=== PATIENT | female | born 1965 | race Caucasian/White ===

== ENCOUNTER 2016-10-17 20:32 | Emergency (ER) | payer OTHER ==
[~2016-10-17] VITALS: Ht 160 cm; Wt 110.2 kg
[~2016-10-17 20:32] MED LIST: ACET500C PO; MIGRAINE MED; NORT10CA PO
[2016-10-17 20:33] VITALS: BP 96/61; PULSE 91; RESP 18; TEMP 98.1; O2SAT 97
[2016-10-17] MEDS ORDERED: REFLUX MED (20:47)
[2016-10-17] MEDS ORDERED: ATEN25TA PO (20:47)
[2016-10-17] MEDS ORDERED: FLUO-1 PO (20:47)
[2016-10-17] MEDS ORDERED: LIDOCAINE 1%/EPINEPHrine 1:100,000 SOLN 30 ML VIAL ONE (21:11)
--- NOTE | 2016-10-17 21:38 | PD ---
HPI Chief Complaint: Skin Problem Time Seen by Provider: 21:05 Travel History International Travel<30 days: No Contact w/Intl Traveler<30days: No Traveled to known affect area: No History of Present Illness HPI 51-year-old female presents to the emergency room for evaluation of bleeding varicose vein to the right lateral, upper leg that occurred just prior to arrival. Patient was shaving her legs and she next the vein and began squirting blood. She applied pressure but could not get it to stop. She denies shortness of breath, lightheadedness, history of anemia. She is not on blood thinners. Tetanus is up-to-date. PFSH Past Medical History Migraines: Yes ?: Not Past Surgical History Appendectomy: Yes Cholecystectomy: Yes Hysterectomy: Yes Other Surgery: Yes (ARM) Social History Alcohol Use: No Tobacco Use: No Substance Use: No Allergies-Medications (Allergen,Severity, Reaction): Coded Allergies: Codeine (Verified Allergy, Severe, 10/17/16) Motrin (Verified Allergy, Severe, Hives, 10/17/16) Ceclor (Verified Allergy, Unknown, HIVES, 10/17/16) Levaquin (Verified Allergy, Unknown, HIVES, 10/17/16) Penicillin (Verified Allergy, Unknown, HIVES, 10/17/16) Reported Meds & Prescriptions Reported Meds & Active Scripts Active Reported [Reflux Med] Unknown Dose Prozac (Fluoxetine HCl) 10 Mg Cap Unknown Dose PO DAILY Atenolol 25 Mg Tab Unknown Dose PO DAILY Nortriptyline (Nortriptyline HCl) 10 Mg Cap Unknown Dose PO HS Review of Systems Except as stated in HPI: all other systems reviewed are Neg Physical Exam Narrative GENERAL: Well-nourished, well-developed female in no acute distress. Afebrile. Ambulatory. SKIN: Focused skin assessment warm/dry. There is a less than 1 mm bleeding puncture wound over a 0.5 cm superficial varicose vein. HEAD: Normocephalic. EYES: No scleral icterus. No injection or drainage. NECK: Supple, trachea midline. No JVD or lymphadenopathy. CARDIOVASCULAR: Regular rate and rhythm without murmurs, gallops, or rubs. RESPIRATORY: Breath sounds equal bilaterally. No accessory muscle use. PSYCHIATRIC: No delusional thought processes. No hallucinations. Data Data Last Documented VS Vital Signs Date Time Temp Pulse Resp B/P Pulse Ox O2 Delivery O2 Flow Rate FiO2 10/17/16 20:33 98.1 91 18 96/61 97 Orders Lidocai-Epi 1%-1:100,000 Inj (Xylocaine- (10/17/16 21:11) MDM Medical Decision Making Medical Screen Exam Complete: Yes Emergency Medical Condition: Yes Medical Record Reviewed: Yes Differential Diagnosis Bleeding disorder, bleeding vein, abrasion, skin tear Narrative Course 51-year-old female presents to the emergency room for evaluation of bleeding superficial vein to her right lateral lower leg that started just prior to arrival. Patient cut herself shaving. She is not on blood thinners. Physical exam reveals a puncture wound over superficial varicose vein that is shooting blood. Lidocaine with epinephrine was applied without relief in symptoms. Area was sutured, see procedure note for details. Patient discharged with wound care instructions and told to follow-up with her primary care physician or return for worsening symptoms. She understands and agrees to plan. Procedures Procedure Narrative LACERATION LOCATION: Right, proximal, lateral lower leg LENGTH: Less than 1 mm NUMBER OF STITCHES/LAURI: 2 REPAIR: The area of the laceration was prepped with Betadine and sterilely draped. The laceration was infiltrated with 1% lidocaine with epinephrine. The wound was copiously irrigated and explored without evidence of foreign body , tendon injury or neurovascular injury. The wound was closed using 6-0 Vicryl. This was a single layer repair. A sterile dressing was applied. The patient was advised to keep the dressing clean and dry. Patient tolerated the procedure well. Diagnosis Primary Impression: Bleeding from varicose veins of right lower extremity Referrals: Primary Care Physician Patient Instructions: General Instructions, Puncture Wound (ED), Varicose Veins (ED) Additional Instructions: Keep wound clean and dry. Apply triple antibiotic ointment twice today. Follow-up with a PCP as needed. If wound starts bleeding, apply pressure for 1 hour. If it is still bleeding after one hour, return to the emergency room. Disposition: 01 DISCHARGE HOME Condition: Stable Coral Tierney Oct 17, 2016 21:38
[2016-10-17 21:39] VITALS: BP 121/52; PULSE 91; O2SAT 97
[2016-10-17] MEDS ORDERED: LIDOCAINE 1%/EPINEPHrine 1:100,000 SOLN 20 ML VIAL INFIL ONE (21:45)
== END 2016-10-17 21:40 | disposition home or self-care (01) ==
LOC: PHEFT 20:32
DX: I83.891 Varicose veins of right lower extremity with other complications (principal); S81.811A Laceration without foreign body, right lower leg, initial encounter
CPT/HCPCS: 12001; 96372

== ENCOUNTER 2017-04-29 05:26 | Inpatient (IN) | payer OTHER ==
[~2017-04-29] VITALS: Ht 160 cm; Wt 117.5 kg
[~2017-04-29 05:26] MED LIST changes: -ACET500C PO; +ATEN25TA PO; +FLUO-1 PO; -MIGRAINE MED
[2017-04-29] MEDS ORDERED: ACETAMINOPHEN 1000 MG/100 ML 100 ML IV SCH (06:00)
[2017-04-29] MEDS ORDERED: LACTATED RINGER'S 1000 ML IV PRN (06:00)
[2017-04-29] MEDS ORDERED: POVIDONE IODINE 5% (ANTISEPSIS KIT) 4 APPLICATIONS EACH NARE PRN (06:00)
[2017-04-29] MEDS ORDERED: CHLORHEXIDINE GLUCONATE 2 % 1 PACK (2 CLOTHS) TOPICAL PRN (06:00)
[2017-04-29] MEDS ORDERED: ONDANSETRON HCL 4 MG/2 ML VIAL IV PUSH SCH (06:00)
[2017-04-29] MEDS ORDERED: APREPITANT 40 MG CAP PO SCH (06:00)
[2017-04-29] MEDS ORDERED: METOPROLOL TARTRATE 25 MG TAB PO PRN (06:00)
[2017-04-29] MEDS ORDERED: SCOPOLAMINE 1.5 MG PATCH T-DERMAL SCH (06:00)
[2017-04-29] MEDS ORDERED: SODIUM CHLORID 0.9% 500 ML IV PRN (06:00)
[2017-04-29] MEDS ORDERED: LEVO137T2 PO (06:33)
[2017-04-29] MEDS ORDERED: PANT40TA3 PO (06:37)
[2017-04-29] MEDS ORDERED: BUPIVACAINE/EPINEPHRINE 0.25% PF 30 ML VIAL ONE (07:04)
[2017-04-29] MEDS: metroNIDAZOLE 500 MG INJ 100 ML IV SCH ×3 (07:39→16:46)
[2017-04-29] MEDS: VANCOMYCIN 1,250 MG/NS 250 ML (for 70-84 kg) IV SCH ×4 (08:26→08:47)
[2017-04-29] MEDS ORDERED: METHYLENE BLUE 10 MG/ML VIAL NG ONE (08:47)
[2017-04-29] MEDS ORDERED: HYDROmorphone HCL PCA 6 MG/30 ML IV SCH (10:00)
[2017-04-29] MEDS ORDERED: diphenhydrAMINE HCL ELIXIR 12.5 MG/5 ML CUP PO PRN (10:00)
[2017-04-29] MEDS ORDERED: diphenhydrAMINE HCL 50 MG/ML VIAL IV PUSH PRN (10:00)
[2017-04-29] MEDS ORDERED: SODIUM CHLORIDE 0.9% FLUSH 10 ML FLUSH IV FLUSH PRN (10:00)
[2017-04-29] MEDS ORDERED: ENALAPRILAT 1.25 MG/ML VIAL IV PUSH PRN (10:00)
[2017-04-29] MEDS ORDERED: NALOXONE HCL 0.4 MG/ML AMP IV PUSH PRN (10:00)
[2017-04-29] MEDS ORDERED: Post-op Orders (for Pharmacy) OTHER ONE (10:12)
[2017-04-29] MEDS: 1/2 NS + KCL 20 MEQ INJ 1,000 ML IV SCH ×3 (10:34→19:13)
[2017-04-29] MEDS: METOCLOPRAMIDE HCL 10 MG/2 ML VIAL IV PUSH SCH ×3 (11:00→21:24)
[2017-04-29] MEDS: RESP: ALBUTEROL 2.5 MG/3 ML NEB (SCH) INH ×2 (11:32→20:54)
[2017-04-29] MEDS ORDERED: *HYDROmorphone PF 1 MG VIAL PERIprocedural Use ONLY ONE (11:37)
[2017-04-29] MEDS: ACETAMINOPHEN 1000 MG/100 ML 100 ML IV SCH ×2 (11:43→17:53)
[2017-04-29] MEDS ORDERED: GLYCOPYRROLATE 1 MG/5 ML SYRINGE IV PUSH ONE (12:00)
[2017-04-29] MEDS ORDERED: LIDOCAINE HCL 1% PF 5 ML SYRINGE OTHER ONE (12:00)
[2017-04-29] MEDS ORDERED: ePHEDrine/NS 25 MG/5 ML SYRINGE IV ONE (12:00)
[2017-04-29] MEDS ORDERED: PHENYLEPH/NS 1000 MCG/10 ML SYR IV ONE (12:00)
[2017-04-29] MEDS ORDERED: ROCURONIUM INJ 50 MG/5 ML SYRINGE IV PUSH ONE (12:00)
[2017-04-29] MEDS ORDERED: ONDANSETRON HCL 4 MG/2 ML VIAL IV PUSH ONE (12:00)
[2017-04-29] MEDS ORDERED: PROPOFOL 200 MG/20 ML AMP IV ONE (12:00)
[2017-04-29] MEDS ORDERED: NEOSTIGMINE 5 MG/5 ML SYRINGE IV PUSH ONE (12:00)
[2017-04-29] MEDS: ENOXAPARIN SODIUM 40 MG/0.4 ML SYRINGE SQ SCH (14:00)
[2017-04-29] MEDS ORDERED: PCA - TOTAL MG DILAUDID DELIVERED PER SHIFT SCH (14:00)
[2017-04-29] MEDS: HYDROmorphone HCL PF 2 MG/ML VIAL IV PRN ×2 (14:17→21:19)
[2017-04-29 16:00] VITALS: BP 112/55; PULSE 91; RESP 16; TEMP 97.4; O2SAT 96
[2017-04-29] MEDS: ONDANSETRON HCL 4 MG/2 ML VIAL IV PUSH PRN (16:02)
[2017-04-29 20:00] VITALS: BP 101/54; PULSE 84; RESP 18; TEMP 96.5; O2SAT 99
[2017-04-29 20:59] VITALS: O2SAT 98
[2017-04-29] MEDS: VANCOMYCIN INJ 1,000 MG in SODIUM CHLOR 0.9% 250 ML INJ 250 ML IV SCH (21:23)
[2017-04-29] MEDS: SODIUM CHLORIDE 0.9% FLUSH 10 ML FLUSH IV FLUSH SCH (21:23)
[2017-04-30] VITALS (9 sets, daily range): BP systolic 110–140; BP diastolic 58–69; PULSE 90–111; RESP 18–20; TEMP 96.5–98.1; O2SAT 93–100
[2017-04-30] MEDS: ACETAMINOPHEN 1000 MG/100 ML 100 ML IV SCH ×2 (00:01→04:41)
[2017-04-30] MEDS: metroNIDAZOLE 500 MG INJ 100 ML IV SCH ×2 (00:02→08:15)
[2017-04-30] MEDS: RESP: ALBUTEROL 2.5 MG/3 ML NEB (SCH) INH ×6 (00:30→21:15)
[2017-04-30] MEDS: HYDROmorphone HCL PF 2 MG/ML VIAL IV PRN ×3 (01:43→15:11)
[2017-04-30] MEDS: METOCLOPRAMIDE HCL 10 MG/2 ML VIAL IV PUSH SCH (04:40)
[2017-04-30] MEDS: LEVOTHYROXINE SODIUM 112 MCG TAB PO SCH (04:42)
[2017-04-30 07:38] LABS: AUTOMATED NEUTROPHIL # 10.7 TH/MM3 (1.8-7.7); BASOPHIL # 0.1 TH/MM3 (0-0.2); BASOPHIL % 0.4 % (0.0-2.0); EOSINOPHIL # 0.1 TH/MM3 (0-0.4); EOSINOPHIL % 0.6 % (0.0-4.0); HEMOGLOBIN 12.2 GM/DL (11.6-15.3); LYMPH % 13.1 % (9.0-44.0); LYMPHOCYTE # 1.7 TH/MM3 (1.0-4.8); MEAN CELL VOLUME 92.2 FL (80.0-100.0); MEAN CORPUSCULAR HEMOGLOBIN 30.4 PG (27.0-34.0); MEAN PLATELET VOLUME 8.9 FL (7.0-11.0); MONO % 4.9 % (0.0-8.0); MONOCYTE # 0.7 TH/MM3 (0-0.9); PLATELET COUNT 240 TH/MM3 (150-450); RED BLOOD COUNT 4.02 MIL/MM3 (4.00-5.30); RED CELL DISTRIBUTION WIDTH 13.6 % (11.6-17.2); WHITE BLOOD COUNT 13.2 TH/MM3 (4.0-11.0)
[2017-04-30 08:02] LABS: BICARBONATE 26.6 MEQ/L (21.0-32.0); CALCIUM 8.1 MG/DL (8.5-10.1); CREATININE 0.86 MG/DL (0.50-1.00)
[2017-04-30] MEDS: FLUoxetine HCL 10 MG CAP PO SCH (08:16)
[2017-04-30] MEDS: PANTOPRAZOLE SOD 40 MG DELAYED RELEASE TAB PO SCH (08:16)
[2017-04-30] MEDS: ONDANSETRON HCL 4 MG/2 ML VIAL IV PUSH PRN ×2 (08:24→18:14)
[2017-04-30] MEDS: SODIUM CHLORIDE 0.9% FLUSH 10 ML FLUSH IV FLUSH SCH ×2 (09:00→20:24)
[2017-04-30] MEDS ORDERED: LEVOTHYROXINE SODIUM 25 MCG TAB PO SCH (09:00)
[2017-04-30] MEDS: VANCOMYCIN INJ 1,000 MG in SODIUM CHLOR 0.9% 250 ML INJ 250 ML IV SCH (09:47)
[2017-04-30] MEDS ORDERED: METOCLOPRAMIDE HCL 10 MG/2 ML VIAL IV PUSH PRN (11:00)
[2017-04-30] MEDS: ENOXAPARIN SODIUM 40 MG/0.4 ML SYRINGE SQ SCH (12:38)
[2017-04-30] MEDS ORDERED: NORTRIPTYLINE HCL 10 MG CAP PO ONE (13:00)
--- NOTE | 2017-04-30 15:55 | HHI.PR ---
Subjective Subjective Notes Sitting up in bed Pain controlled Going slow with fluids Objective Vitals/I&O Vital Signs Date Time Temp Pulse Resp B/P (MAP) Pulse Ox O2 Delivery O2 Flow Rate FiO2 04/30/17 12:22 98.1 04/30/17 12:00 93 18 135/61 (85) 93 04/30/17 00:30 Nasal Cannula 2.00 Labs Laboratory Tests Test 04/30/17 06:50 White Blood Count 13.2 Red Blood Count 4.02 Hemoglobin 12.2 Hematocrit 37.0 Mean Corpuscular Volume 92.2 Mean Corpuscular Hemoglobin 30.4 Mean Corpuscular Hemoglobin Concent 33.0 Red Cell Distribution Width 13.6 Platelet Count 240 Mean Platelet Volume 8.9 Neutrophils (%) (Auto) 81.0 Lymphocytes (%) (Auto) 13.1 Monocytes (%) (Auto) 4.9 Eosinophils (%) (Auto) 0.6 Basophils (%) (Auto) 0.4 Neutrophils # (Auto) 10.7 Lymphocytes # (Auto) 1.7 Monocytes # (Auto) 0.7 Eosinophils # (Auto) 0.1 Basophils # (Auto) 0.1 CBC Comment DIFF FINAL Differential Comment Blood Urea Nitrogen 14 Creatinine 0.86 Random Glucose 180 Calcium Level 8.1 Magnesium Level 2.0 Sodium Level 134 Potassium Level 4.3 Chloride Level 99 Carbon Dioxide Level 26.6 Anion Gap 8 Estimat Glomerular Filtration Rate 69 Cardiovascular: Regular Lungs: Clear Abdomen: Post-op tenderness Extremities: Perfused Wound Wound : Wound Location: Abdomen Appearance: Clean & Dry A/P Assessment and Plan 51yo F POD#1 laparoscopic RnY -Continue with frequent ambulation -Continue to increase fluid to at least 2oz Q30min Discharge Planning D/C home tomorrow Rachid Del Rio Apr 30, 2017 15:54
[2017-04-30] MEDS: ATENOLOL 25 MG TAB PO SCH (16:10)
[2017-04-30 20:10] LABS: AUTOMATED NEUTROPHIL # 7.9 TH/MM3 (1.8-7.7); BASOPHIL % 0.3 % (0.0-2.0); EOSINOPHIL # 0.1 TH/MM3 (0-0.4); EOSINOPHIL % 0.9 % (0.0-4.0); HEMATOCRIT 33.3 % (35.0-46.0); HEMOGLOBIN 10.9 GM/DL (11.6-15.3); LYMPH % 10.8 % (9.0-44.0); MEAN CORPUSCULAR HEMOGLOBIN 29.8 PG (27.0-34.0); MEAN CORPUSCULAR HGB CONC 32.7 % (32.0-36.0); MEAN PLATELET VOLUME 8.5 FL (7.0-11.0); MONO % 4.2 % (0.0-8.0); MONOCYTE # 0.4 TH/MM3 (0-0.9); NEUT % 83.8 % (16.0-70.0); PLATELET COUNT 167 TH/MM3 (150-450); RED BLOOD COUNT 3.65 MIL/MM3 (4.00-5.30); RED CELL DISTRIBUTION WIDTH 13.5 % (11.6-17.2); WHITE BLOOD COUNT 9.5 TH/MM3 (4.0-11.0)
[2017-04-30 20:19] LABS: INTERNATIONAL NORMALIZED RATIO 1.1 RATIO; PROTHROMBIN TIME - PATIENT 10.7 SEC (9.8-11.6)
[2017-04-30] MEDS: 1/2 NS + KCL 20 MEQ INJ 1,000 ML IV SCH (20:24)
[2017-04-30 20:27] LABS: CREATININE 0.58 MG/DL (0.50-1.00)
[2017-04-30 20:28] LABS: TOTAL BILIRUBIN ADULT 0.4 MG/DL (0.2-1.0)
[2017-04-30] MEDS ORDERED: NORTRIPTYLINE HCL 10 MG CAP PO SCH (21:00)
[2017-05-01] VITALS: BP 141/82; PULSE 85; RESP 18; TEMP 98.3; O2SAT 92
[2017-05-01] MEDS: RESP: ALBUTEROL 2.5 MG/3 ML NEB (SCH) INH ×3 (01:09→08:00)
[2017-05-01] MEDS: LEVOTHYROXINE SODIUM 112 MCG TAB PO SCH (05:52)
[2017-05-01] MEDS ORDERED: LEVOTHYROXINE SODIUM 25 MCG TAB PO SCH (06:00)
[2017-05-01 08:00] VITALS: BP 130/72; PULSE 84; RESP 16; TEMP 96.8; O2SAT 91
[2017-05-01] MEDS: SODIUM CHLORIDE 0.9% FLUSH 10 ML FLUSH IV FLUSH SCH (09:00)
[2017-05-01] MEDS: PANTOPRAZOLE SOD 40 MG DELAYED RELEASE TAB PO SCH (09:02)
[2017-05-01] MEDS: ATENOLOL 25 MG TAB PO SCH (09:02)
[2017-05-01] MEDS: FLUoxetine HCL 10 MG CAP PO SCH (09:02)
[2017-05-01] MEDS: 1/2 NS + KCL 20 MEQ INJ 1,000 ML IV SCH (09:04)
[2017-05-01 12:00] VITALS: BP 164/82; PULSE 76; RESP 21; TEMP 96.3; O2SAT 94
--- NOTE | 2017-05-01 12:20 | HHI.PR ---
Subjective Subjective Notes Pain well controlled No GI complaints Objective Vitals/I&O Vital Signs Date Time Temp Pulse Resp B/P (MAP) Pulse Ox O2 Delivery O2 Flow Rate FiO2 05/01/17 12:00 96.3 76 21 164/82 (109) 94 04/30/17 00:30 Nasal Cannula 2.00 Labs Laboratory Tests Test 04/30/17 19:34 White Blood Count 9.5 Red Blood Count 3.65 Hemoglobin 10.9 Hematocrit 33.3 Mean Corpuscular Volume 91.0 Mean Corpuscular Hemoglobin 29.8 Mean Corpuscular Hemoglobin Concent 32.7 Red Cell Distribution Width 13.5 Platelet Count 167 Mean Platelet Volume 8.5 Neutrophils (%) (Auto) 83.8 Lymphocytes (%) (Auto) 10.8 Monocytes (%) (Auto) 4.2 Eosinophils (%) (Auto) 0.9 Basophils (%) (Auto) 0.3 Neutrophils # (Auto) 7.9 Lymphocytes # (Auto) 1.0 Monocytes # (Auto) 0.4 Eosinophils # (Auto) 0.1 Basophils # (Auto) 0.0 CBC Comment DIFF FINAL Differential Comment Prothrombin Time 10.7 Prothromb Time International Ratio 1.1 Activated Partial Thromboplast Time 28.6 Creatinine 0.58 Estimat Glomerular Filtration Rate 109 Lactic Acid Level 1.1 Total Bilirubin 0.4 Date/Time Source Procedure Growth Status 04/30/17 19:34 Blood Peripheral Aerobic Blood Culture - Preliminary NO GROWTH IN 1 DAY Resulted 04/30/17 19:34 Blood Peripheral Anaerobic Blood Culture - Preliminary NO GROWTH IN 1 DAY Resulted Abdomen: Post-op tenderness Extremities: Perfused Wound Wound : Wound Location: Abdomen Appearance: Clean & Dry A/P Assessment and Plan 51yo F POD#2 laparoscopic RnY -Continue with frequent ambulation -Continue to increase fluid as tolerated Discharge Planning D/C home today Rachid Del Rio May 01, 2017 12:20
[2017-05-01] MEDS ORDERED: NORTRIPTYLINE HCL 10 MG CAP PO SCH (21:00)
--- NOTE | 2017-05-02 08:49 | MP ---
cc: SCAR SCHWARZ DATE OF OPERATION 04/29/2017 DATE OF 1965 PREOPERATIVE DIAGNOSIS Morbid obesity with BMI of 46 complicated by type 2 diabetes. POSTOPERATIVE DIAGNOSIS Morbid obesity with BMI of 46 complicated by type 2 diabetes. PROCEDURE Laparoscopic Dominick-en-Y gastric bypass 100 cm Dominick limb antegastric antecolic. SURGEON Scar Schwarz MD SUPERVISOR WOUND Porter Gaona MD ANESTHESIA General endotracheal anesthesia ESTIMATED BLOOD LOSS Scant FINDINGS Fatty liver SPECIMENS None COMPLICATIONS None PROCEDURE IN DETAIL The patient was brought to the operating room and placed on the operating table in supine position, bilateral sequential inflation device placed on lower extremities. General anesthesia was instituted. Antibiotics was initiated. The abdomen was prepped and draped sterilely. A point 15 cm distal to the xiphoid in the midline was anesthetized with 0.25% Marcaine with epinephrine. A skin incision was made, 5-mm OptiView port placed under direct vision and pneumoperitoneum created. Under direct vision, three 5-mm left upper quadrant, a 15-mm right upper quadrant, 5-mm right upper quadrant ports placed. Prior to placement of all ports the skin and peritoneum were anesthetized with 0.25% Marcaine with epinephrine. The patient was placed in reverse Trendelenburg position left side up, the Scarlett-Flex retractor was placed. The left lobe of the liver was retracted. The vasculature along the greater curvature of the stomach was using harmonic scalpel starting a distance 5-cm proximal to the pylorus and carried towards the angle of His. The angle of His was taken down bluntly. Posterior ligamentous attachments were sharply . A 36-[place] ViSiGi bougie was placed at the start of the case, was placed on suction. Division of the stomach started 5 cm proximal to the pylorus and carried towards the angle of His to completely excise approximately 80% of the stomach. This was performed using an [place] Flex stapler at the pylorus. The first firing was with a black load, followed by a green load and four gold loads. All staple loads were reinforced with SeamGuard. A distance of 2 cm was left from the angle incisura and the staple line and a distance of 1 cm left from the GE junction and the staple line. The pylorus was then occluded, methylene blue tinged saline was instilled. There was no evidence of extravasation. The gastrocolic ligament was then sutured to the posterior leaflet of the SeamGuard using a 2-0 Vicryl suture in a running manner. Bleeding points were controlled with Evicel. The excised stomach was removed from the peritoneal cavity through the 15-mm port site in an Endopouch. The fascia at the 15-mm port site was approximated with 0 Vicryl suture. The CO2 was then released, all ports were removed, all skin incisions closed with 4-0 Monocryl. The abdominal wall was cleaned. A sterile dressing was placed. The patient was awakened and taken to the recovery room. MD NIESHA Gayle/EMELI /5:42 PM /8:37 AM
== END 2017-05-01 13:39 | disposition home or self-care (01) | DRG 621 ==
LOC: HSDI 05:26 → N07A 15:10
PROVIDERS: ADMIT Surgery; ATTEND Surgery
PROC: 0D164ZA Bypass Stomach to Jejunum, Percutaneous Endoscopic Approach (ICD-10-PCS; principal; 2017-04-29 07:57)
DX: E66.01 Morbid (severe) obesity due to excess calories (principal); K76.0 Fatty (change of) liver, not elsewhere classified; E11.9 Type 2 diabetes mellitus without complications; Z68.42 Body mass index [BMI] 45.0-49.9, adult; G43.909 Migraine, unspecified, not intractable, without status migrainosus; K21.9 Gastro-esophageal reflux disease without esophagitis; E03.9 Hypothyroidism, unspecified; Z88.1 Allergy status to other antibiotic agents; Z88.5 Allergy status to narcotic agent; Z88.0 Allergy status to penicillin; Z88.2 Allergy status to sulfonamides
CPT/HCPCS: 80048; 82247; 82565; 83605; 83735; 85025; 85610; 85730; 87040; 94150; 94640; 94664; J0131; J1170; J1650; J2370; J2405; J2710; J2765; J3370; J7050; J7120; J7613; J8501

== ENCOUNTER 2017-05-04 03:52 | Inpatient (IN) | payer OTHER ==
[~2017-05-04 03:52] MED LIST changes: +LEVO137T2 PO; +PANT40TA3 PO
[2017-05-04 03:54] VITALS: BP 112/66; PULSE 100; RESP 18; TEMP 98.6; O2SAT 97
[2017-05-04] MEDS ORDERED: SODIUM CHLOR 0.9% 1000 ML INJ 1,000 ML IV SCH (05:11)
[2017-05-04] MEDS ORDERED: SODIUM CHLORIDE 0.9% FLUSH 10 ML FLUSH IV FLUSH PRN ×2 (05:15→13:30)
[2017-05-04] MEDS ORDERED: ONDANSETRON HCL 4 MG/2 ML VIAL IVP ONE (05:15)
--- NOTE | 2017-05-04 05:17 | PD ---
HPI Chief Complaint: GI Complaint Time Seen by Provider: 05:11 Travel History International Travel<30 days: No Contact w/Intl Traveler<30days: No Traveled to known affect area: No History of Present Illness HPI 51-year-old female presents to the emergency department by private transportation for evaluation of vomiting since Saturday evening. Patient underwent elective gastric bypass on Saturday with Dr. Rojas. Patient is been doing well until last evening. Patient denies fever or chills. Patient's had no productive cough or shortness of breath or pleuritic chest pain. No report of lower extremity pain or swelling. No shortness of breath. Patient has had vomiting at least 11 times since last evening of mild amount of pink tinged fluid from the stomach states that she has been eating Jell-O. Patient rates overall discomfort 5/10 in intensity and described as crampy in nature. Last bowel movement was last Saturday and has not had a bowel movement since surgery. Patient does not report any increased distention of the abdomen. Per operative note, patient underwent elective laparoscopic Dominick-en-Y gastric bypass was 100 cm Dominick limb, antegastric antecolic. Patient has history of diet -controlled diabetes GERD hypothyroidism anxiety. No tobaccoism. PFSH Past Medical History Arthritis: Yes Depression: Yes Cancer: No Cardiovascular Problems: No Diabetes: Yes (CONTROLED BY DIET ) Patient Takes Glucophage: No Diminished Hearing: No Endocrine: Yes Gastrointestinal Disorders: Yes GERD: Yes Genitourinary: No Hepatitis: No Hiatal Hernia: No Immune Disorder: No Medical other: Yes (MIGRAINES (TREATING WITH ATENOLOL)) Musculoskeletal: Yes Neurologic: No Psychiatric: Yes Respiratory: No Migraines: Yes (TAKES BETABLOCKER ) Thyroid Disease: Yes ?: Not Past Surgical History Abdominal Surgery: Yes (APENDECTOMY, AND GALBLADER ) AICD: No Appendectomy: Yes Body Medical Devices: NONE PER PT Cholecystectomy: Yes Gynecologic Surgery: Yes (HYSTORECTOMY ) Hysterectomy: Yes Joint Replacement: No Pacemaker: No Other Surgery: Yes (FULL HISTORECTOM, GALL BLADDER, APENDIX ) Social History Alcohol Use: No Tobacco Use: No Substance Use: No Allergies-Medications (Allergen,Severity, Reaction): Coded Allergies: codeine (Unverified Allergy, Severe, 05/04/17) ibuprofen (Unverified Allergy, Severe, Hives, 05/04/17) cefaclor (Unverified Allergy, Unknown, HIVES, 05/04/17) levofloxacin (Unverified Allergy, Unknown, HIVES, 05/04/17) penicillin G (Unverified Allergy, Unknown, HIVES, 05/04/17) Uncoded Allergies: MORPHINE DERIVATIVES (Allergy, Unknown, Hives, 04/29/17) SULFA DRUGS (Allergy, Unknown, hives, 04/29/17) Reported Meds & Prescriptions Reported Meds & Active Scripts Active Reported Pantoprazole (Pantoprazole Sodium) 40 Mg Tab 40 Mg PO BID Levothyroxine (Levothyroxine Sodium) 137 Mcg Tab 137 Mcg PO DAILY Prozac (Fluoxetine HCl) 10 Mg Cap 10 Mg PO DAILY Atenolol 25 Mg Tab 25 Mg PO DAILY Nortriptyline (Nortriptyline HCl) 10 Mg Cap 10 Mg PO HS Review of Systems Except as stated in HPI: all other systems reviewed are Neg Physical Exam Narrative GENERAL: Well-developed well-nourished obese female in no acute distress no respiratory distress SKIN: Warm and dry. HEAD: Normocephalic. EYES: No scleral icterus. No injection or drainage. NECK: Supple, trachea midline. No JVD or lymphadenopathy. CARDIOVASCULAR: Regular rate and rhythm without murmurs, gallops, or rubs. RESPIRATORY: Breath sounds equal bilaterally. No accessory muscle use. GASTROINTESTINAL: Abdomen soft, non-tender, no guarding no rebound, pulsatile Steri-Strips in place with no induration erythema or drainage, nondistended. MUSCULOSKELETAL: No cyanosis, or edema. BACK: Nontender without obvious deformity. No CVA tenderness. Data Data Last Documented VS Vital Signs Date Time Temp Pulse Resp B/P (MAP) Pulse Ox O2 Delivery O2 Flow Rate FiO2 05/04/17 03:54 98.6 100 18 112/66 (81) 97 Orders Orders Complete Blood Count With Diff (05/04/17 05:11) Comprehensive Metabolic Panel (05/04/17 05:11) Lipase (05/04/17 05:11) Lactic Acid (05/04/17 05:11) Urinalysis - C+S If Indicated (05/04/17 05:11) Ct Abd/Pel W Iv Contrast(Rout) (05/04/17 05:11) Iv Access Insert/Monitor (05/04/17 05:11) Ecg Monitoring (05/04/17 05:11) Oximetry (05/04/17 05:11) Ondansetron Inj (Zofran Inj) (05/04/17 05:15) Sodium Chlor 0.9% 1000 Ml Inj (Ns 1000 M (05/04/17 05:11) Sodium Chloride 0.9% Flush (Ns Flush) (05/04/17 05:15) Electrocardiogram (05/04/17 05:11) Chest, Single Ap (05/04/17 05:11) Iohexol 350 Inj (Omnipaque 350 Inj) (05/04/17 07:40) Labs Laboratory Tests Test 05/04/17 06:05 White Blood Count 14.3 TH/MM3 Red Blood Count 4.44 MIL/MM3 Hemoglobin 13.7 GM/DL Hematocrit 40.0 % Mean Corpuscular Volume 90.1 FL Mean Corpuscular Hemoglobin 30.9 PG Mean Corpuscular Hemoglobin Concent 34.3 % Red Cell Distribution Width 13.6 % Platelet Count 305 TH/MM3 Mean Platelet Volume 8.5 FL Neutrophils (%) (Auto) 84.4 % Lymphocytes (%) (Auto) 10.0 % Monocytes (%) (Auto) 3.8 % Eosinophils (%) (Auto) 1.3 % Basophils (%) (Auto) 0.5 % Neutrophils # (Auto) 12.0 TH/MM3 Lymphocytes # (Auto) 1.4 TH/MM3 Monocytes # (Auto) 0.5 TH/MM3 Eosinophils # (Auto) 0.2 TH/MM3 Basophils # (Auto) 0.1 TH/MM3 CBC Comment DIFF FINAL Differential Comment Blood Urea Nitrogen 15 MG/DL Creatinine 0.79 MG/DL Random Glucose 137 MG/DL Total Protein 8.5 GM/DL Albumin 3.0 GM/DL Calcium Level 9.0 MG/DL Alkaline Phosphatase 151 U/L Aspartate Amino Transf (AST/SGOT) 25 U/L Alanine Aminotransferase (ALT/SGPT) 35 U/L Total Bilirubin 0.7 MG/DL Sodium Level 136 MEQ/L Potassium Level 3.8 MEQ/L Chloride Level 98 MEQ/L Carbon Dioxide Level 25.1 MEQ/L Anion Gap 13 MEQ/L Estimat Glomerular Filtration Rate 76 ML/MIN Lactic Acid Level 0.9 mmol/L Lipase 151 U/L [facility] Medical Decision Making Medical Screen Exam Complete: Yes Emergency Medical Condition: Yes Medical Record Reviewed: Yes Interpretation(s) EKG normal sinus rhythm rate 93 nonspecific T-wave abnormality no acute ST elevation or injury pattern change or ectopy noted Differential Diagnosis Bowel obstruction, ileus, postoperative complication, constipation, abscess Narrative Course IV access obtained 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
--- NOTE | 2017-05-04 05:34 | RADRPT ---
EXAM DATE/TIME: 05/04/2017 05:17 [facility] COMPARISON: CHEST SINGLE AP, March 02, 2016, 17:29. INDICATIONS : Lower quadrant abdominal pain three days post-op gastric bypass surgery. MEDICAL HISTORY : None. SURGICAL HISTORY : Gastric bypass. Appendectomy. Hysterectomy. ENCOUNTER: Initial ACUITY: 1 day PAIN SCORE: 0/10 LOCATION: Bilateral chest FINDINGS: A single view of the chest demonstrates the lungs to be symmetrically aerated without evidence of mas s, infiltrate or effusion. The cardiomediastinal contours are unremarkable. Osseous structures are intact. CONCLUSION: No acute disease. No significant change has occurred. Farhat De La Torre MD on May 04, 2017 at 5:31 Board Certified Radiologist. This report was verified electronically.
[2017-05-04 06:38] LABS: BASOPHIL # 0.1 TH/MM3 (0-0.2); BASOPHIL % 0.5 % (0.0-2.0); EOSINOPHIL # 0.2 TH/MM3 (0-0.4); EOSINOPHIL % 1.3 % (0.0-4.0); HEMOGLOBIN 13.7 GM/DL (11.6-15.3); LYMPHOCYTE # 1.4 TH/MM3 (1.0-4.8); MEAN CELL VOLUME 90.1 FL (80.0-100.0); MEAN CORPUSCULAR HEMOGLOBIN 30.9 PG (27.0-34.0); MEAN CORPUSCULAR HGB CONC 34.3 % (32.0-36.0); MEAN PLATELET VOLUME 8.5 FL (7.0-11.0); MONO % 3.8 % (0.0-8.0); MONOCYTE # 0.5 TH/MM3 (0-0.9); NEUT % 84.4 % (16.0-70.0); PLATELET COUNT 305 TH/MM3 (150-450); RED BLOOD COUNT 4.44 MIL/MM3 (4.00-5.30); RED CELL DISTRIBUTION WIDTH 13.6 % (11.6-17.2); WHITE BLOOD COUNT 14.3 TH/MM3 (4.0-11.0)
[2017-05-04 06:58] LABS: AST (GOT) 25 U/L (15-37); BICARBONATE 25.1 MEQ/L (21.0-32.0); BLOOD UREA NITROGEN 15 MG/DL (7-18); CHLORIDE 98 MEQ/L (98-107); CREATININE 0.79 MG/DL (0.50-1.00); GLOMERULAR FILTRATION RATE 76 ML/MIN (>89); GLUCOSE,RANDOM 137 MG/DL (74-106); LIPASE 151 U/L (73-393); SODIUM (NA) 136 MEQ/L (136-145)
[2017-05-04 07:01] LABS: ALKALINE PHOSPHATASE 151 U/L (45-117); ALT (GPT) 35 U/L (10-53); TOTAL BILIRUBIN ADULT 0.7 MG/DL (0.2-1.0); TOTAL PROTEIN 8.5 GM/DL (6.4-8.2)
[2017-05-04] MEDS ORDERED: IOHEXOL 350 MG/ML 10 ML VIAL (for RAD DIAG) IVCONTRAST ONE (07:40)
[2017-05-04 08:06] VITALS: BP 107/66; PULSE 96; RESP 22; O2SAT 92
--- NOTE | 2017-05-04 08:10 | RADRPT ---
EXAM DATE/TIME: 05/04/2017 07:27 [facility] COMPARISON: No previous studies available for comparison. INDICATIONS : Constipation, nausea and vomiting status post gastric bypass five days ago. IV CONTRAST: 70 cc Omnipaque 350 (iohexol) IV ORAL CONTRAST: No oral contrast ingested. RADIATION DOSE: 18.06 CTDIvol (mGy) ; Patient body habitus MEDICAL HISTORY : None SURGICAL HISTORY : Hysterectomy. Cholecystectomy.Appendectomy.gastric bypass ENCOUNTER: Initial ACUITY: 4 - 6 days PAIN SCALE: 5/10 LOCATION: Bilateral abdomen TECHNIQUE: Volumetric scanning of the abdomen and pelvis was performed. Using automated exposure control and ad justment of the mA and/or kV according to patient size, radiation dose was kept as low as reasonably achievable to obtain optimal diagnostic quality images. DICOM format image data is available electro nically for review and comparison. FINDINGS: LOWER LUNGS: Mild atelectasis left lung base. LIVER: Mild diffuse hypodensity of the liver indicating mild hepatic steatosis. Status post cholecystectomy. SPLEEN: Normal size without lesion. PANCREAS: Within normal limits. KIDNEYS: Normal in size and shape. There is no mass, stone or hydronephrosis. ADRENAL GLANDS: Within normal limits. VASCULAR: There is no aortic aneurysm. BOWEL/MESENTERY: Postsurgical findings in the stomach proximal small bowel indicating gastric bypass. No organized flu id collections identified. No free air. Minimal hazy opacity in the anterior mesenteric fat may repre sent postsurgical change. No evidence of bowel dilatation. ABDOMINAL WALL: Minimal gas in the anterior abdominal wall likely representing postsurgical change. There is hazy [place] in the anterior abdominal wall fat may represent postsurgical change or inflammatory change. No organized fluid collection. RETROPERITONEUM: There is no lymphadenopathy. BLADDER: No wall thickening or mass. REPRODUCTIVE: Within normal limits. INGUINAL: There is no lymphadenopathy or hernia. MUSCULOSKELETAL: Within normal limits for patient age. CONCLUSION: 1. Evidence of recent gastric bypass procedure. There is mild hazy opacity in the mesenteric fat and anterior abdominal wall this is nonspecific and may represent postsurgical change or inflammatory cristi nge. No organized fluid collections. No free air or free fluid. No evidence of bowel obstruction. 2. Mild hepatic steatosis. 3. Status post cholecystectomy. Jason Galvan MD on May 04, 2017 at 8:01 Board Certified Radiologist. This report was verified electronically.
[2017-05-04] MEDS ORDERED: METOCLOPRAMIDE INJ 10 MG in SODIUM CHLORIDE 0.9% INJ 50 ML IV ONE (08:15)
[2017-05-04] MEDS ORDERED: DIATRIZOATE MEGLUM/DIATRIZOATE SOD 120 ML BTL (for RAD DIAG) PO ONE (10:27)
--- NOTE | 2017-05-04 10:28 | PD ---
Physical Exam Narrative Patient signed out to me by Dr. Valenzuela. Please see her documentation for complete details. Briefly, Patient is a 51 year old female who recently had gastric bypass surgery , complaining of nausea and vomiting since last night. She says she has been eating only jello and broth and in the appropriate amounts, she denies any change. Exam shows abdomen to be soft and nontender. Data Data Last Documented VS Vital Signs Date Time Temp Pulse Resp B/P (MAP) Pulse Ox O2 Delivery O2 Flow Rate FiO2 05/04/17 08:06 96 22 107/66 (80) 92 05/04/17 03:54 98.6 Orders Orders Complete Blood Count With Diff (05/04/17 05:11) Comprehensive Metabolic Panel (05/04/17 05:11) Lipase (05/04/17 05:11) Lactic Acid (05/04/17 05:11) Urinalysis - C+S If Indicated (05/04/17 05:11) Ct Abd/Pel W Iv Contrast(Rout) (05/04/17 05:11) Iv Access Insert/Monitor (05/04/17 05:11) Ecg Monitoring (05/04/17 05:11) Oximetry (05/04/17 05:11) Ondansetron Inj (Zofran Inj) (05/04/17 05:15) Sodium Chlor 0.9% 1000 Ml Inj (Ns 1000 M (05/04/17 05:11) Sodium Chloride 0.9% Flush (Ns Flush) (05/04/17 05:15) Electrocardiogram (05/04/17 05:11) Chest, Single Ap (05/04/17 05:11) Iohexol 350 Inj (Omnipaque 350 Inj) (05/04/17 07:40) Metoclopramide Inj (Reglan Inj) (05/04/17 08:15) Gastrografin Gi Series (05/04/17 ) Ondansetron Inj (Zofran Inj) (05/04/17 10:30) Admit Order (Ed Use Only) (05/04/17 ) Labs Laboratory Tests Test 05/04/17 06:05 White Blood Count 14.3 TH/MM3 Red Blood Count 4.44 MIL/MM3 Hemoglobin 13.7 GM/DL Hematocrit 40.0 % Mean Corpuscular Volume 90.1 FL Mean Corpuscular Hemoglobin 30.9 PG Mean Corpuscular Hemoglobin Concent 34.3 % Red Cell Distribution Width 13.6 % Platelet Count 305 TH/MM3 Mean Platelet Volume 8.5 FL Neutrophils (%) (Auto) 84.4 % Lymphocytes (%) (Auto) 10.0 % Monocytes (%) (Auto) 3.8 % Eosinophils (%) (Auto) 1.3 % Basophils (%) (Auto) 0.5 % Neutrophils # (Auto) 12.0 TH/MM3 Lymphocytes # (Auto) 1.4 TH/MM3 Monocytes # (Auto) 0.5 TH/MM3 Eosinophils # (Auto) 0.2 TH/MM3 Basophils # (Auto) 0.1 TH/MM3 CBC Comment DIFF FINAL Differential Comment Blood Urea Nitrogen 15 MG/DL Creatinine 0.79 MG/DL Random Glucose 137 MG/DL Total Protein 8.5 GM/DL Albumin 3.0 GM/DL Calcium Level 9.0 MG/DL Alkaline Phosphatase 151 U/L Aspartate Amino Transf (AST/SGOT) 25 U/L Alanine Aminotransferase (ALT/SGPT) 35 U/L Total Bilirubin 0.7 MG/DL Sodium Level 136 MEQ/L Potassium Level 3.8 MEQ/L Chloride Level 98 MEQ/L Carbon Dioxide Level 25.1 MEQ/L Anion Gap 13 MEQ/L Estimat Glomerular Filtration Rate 76 ML/MIN Lactic Acid Level 0.9 mmol/L Lipase 151 U/L [facility] Supervised Visit with KENDELL: No Narrative Course Patient received Zofran and continued to vomit. She was given Reglan. CT shows area of inflammation vs post-op changes. Last 24 hours Impressions Chest X-Ray 05/04/17510 Signed Impressions: Service Date/Time: Thursday, May 04, 2017 05:17 - CONCLUSION: No acute disease. No significant change has occurred. Farhat De La Torre MD Abdomen/Pelvis CT 05/04/17510 Signed Impressions: Service Date/Time: Thursday, May 04, 2017 07:27 - CONCLUSION: 1. Evidence of recent gastric bypass procedure. There is mild hazy opacity in the mesenteric fat and anterior abdominal wall this is nonspecific and may represent postsurgical change or inflammatory change. No organized fluid collections. No free air or free fluid. No evidence of bowel obstruction. 2. Mild hepatic steatosis. 3. Status post cholecystectomy. Jason Galvan MD I spoke with Dr. Gaona regarding the patient and he suggest an upper GI series. Patient continues to vomit and is unable to have the study done. Given additional Zofran and placed in observation for further management. Diagnosis Primary Impression: Vomiting Qualified Codes: R11.2 - Nausea with vomiting, unspecified Admitting Information Admitting Physician Requests: Observation Katalina Dickey MD May 04, 2017 10:28
[2017-05-04] MEDS ORDERED: ONDANSETRON HCL 4 MG/2 ML VIAL IV PUSH ONE (10:30)
[2017-05-04 10:53] LABS: BACTERIA, URINE OCC /hpf; BLOOD, URINE NEG (NEG); GLUCOSE,URINE NEG (NEG); KETONE, URINE 150 mg/dL (NEG); MUCUS URINE FEW /lpf (OCC); NITRITE,URINE NEG (NEG); PH, URINE 6.5 (5.0-8.5); SQUAMOUS EPITHELIAL CELL URINE 8 /hpf (0-5); URINE COLOR YELLOW (YELLW/STRAW); URINE LEUKOCYTE ESTERASE NEG (NEG)
[2017-05-04 10:54] LABS: BILIRUBIN, URINE NEG (NEG)
[2017-05-04] MEDS ORDERED: SODIUM CHLOR 0.9% 1000 ML INJ 1,000 ML IV ONE (13:15)
[2017-05-04] MEDS ORDERED: PROCHLORPERAZINE INJ 10 MG/2 ML VIAL IV PUSH ONE (13:15)
[2017-05-04] MEDS ORDERED: SCOPOLAMINE 1.5 MG PATCH T-DERMAL ONE (13:15)
[2017-05-04] MEDS ORDERED: ONDANSETRON HCL 4 MG/2 ML VIAL IV PUSH PRN (13:30)
[2017-05-04] MEDS ORDERED: diphenhydrAMINE HCL ELIXIR 12.5 MG/5 ML CUP PO PRN (13:30)
[2017-05-04] MEDS ORDERED: diphenhydrAMINE HCL 50 MG/ML VIAL IV PUSH PRN (13:30)
[2017-05-04] MEDS ORDERED: Post-op Orders (for Pharmacy) OTHER ONE (13:30)
[2017-05-04 13:34] VITALS: O2SAT 95
[2017-05-04] MEDS: SODIUM CHLORIDE 0.9% FLUSH 10 ML FLUSH IV FLUSH SCH ×2 (14:21→20:25)
[2017-05-04 14:36] VITALS: BP 111/68; PULSE 91; RESP 17; O2SAT 94
--- NOTE | 2017-05-04 15:27 | EKG ---
Date Performed: 05/04/2017 Time Performed: 06:28:32 PTAGE: 51 years EKG: Sinus rhythm NONSPECIFIC T-WAVE ABNORMALITY BORDERLINE ECG NO PREVIOUS TRACING DOCTOR: Lawrence Chris Interpretating Date/Time 05/04/2017 15:26:10
[2017-05-04] MEDS: METOCLOPRAMIDE HCL 10 MG/2 ML VIAL IV PUSH SCH ×2 (17:02→20:25)
[2017-05-04] MEDS: ACETAMINOPHEN 1000 MG/100 ML 100 ML IV SCH ×2 (17:06→20:25)
[2017-05-04] MEDS: PANTOPRAZOLE SOD 40 MG DELAYED RELEASE TAB PO SCH (17:06)
[2017-05-04] MEDS: D5-1/2 NS + KCL 20 MEQ INJ 1,000 ML IV SCH ×2 (17:07→22:00)
--- NOTE | 2017-05-04 18:14 | RADRPT ---
EXAM DATE/TIME: 05/04/2017 17:41 [facility] COMPARISON: No previous studies available for comparison. INDICATIONS : Post gastric bypass vomitting. FLUORO TIME: 0.9 minutes IMAGE COUNT: 11 CONTRAST: 1. MD Richter MEDICAL HISTORY : Hypertension. Diabetes mellitus type II. SURGICAL HISTORY : Appendectomy. Gastric bypass. Cholecystectomy. ENCOUNTER: Initial ACUITY: 2 days PAIN SCORE: 5/10 LOCATION: upper abdomen. FINDINGS: The initial tray filler radiograph shows a nonobstructive bowel gas pattern. No evidence of free air. Gastroesophageal junction and the gastrojejunal anastomosis are patent. There is diffuse mucosal fold thickening of the jejunal segment. No distention. There is no leak. CONCLUSION: Recent gastric bypass changes with a nonspecific enteritis of the jejunal segment. GE junction and ga strojejunal anastomosis are patent. Contrast not observed in the more distal small bowel but there is no distention to suggest obstruction. A portable abdomen x-ray will be obtained in one hour. Finding s were discussed with Dr. Gaona by phone. Hermilo Porter MD on May 04, 2017 at 18:06 Board Certified Radiologist. This report was verified electronically.
[2017-05-04 19:00] VITALS: BP 108/56; PULSE 97; RESP 16; TEMP 97.6; O2SAT 95
--- NOTE | 2017-05-04 19:11 | RADRPT ---
EXAM DATE/TIME: 05/04/2017 18:38 [facility] COMPARISON: No previous studies available for comparison. INDICATIONS : Post gastric bypass vomitting. MEDICAL HISTORY : Hypertension. Diabetes mellitus type II. SURGICAL HISTORY : Appendectomy. Gastric bypass. Cholecystectomy. ENCOUNTER: Initial ACUITY: 2 days PAIN SCORE: 5/10 LOCATION: Bilateral upper abdomen FINDINGS: Dilute contrast from recent Gastrografin swallow seen in the left abdomen. No distended loops. No jamaal e air. CONCLUSION: Nonobstructive pattern. Hermilo Porter MD on May 04, 2017 at 19:06 Board Certified Radiologist. This report was verified electronically.
--- NOTE | 2017-05-04 19:23 | MH ---
cc: JE FALK MD DATE OF ADMISSION: 05/04/2017 CHIEF COMPLAINT: Nausea, vomiting, abdominal pain. HISTORY OF PRESENT ILLNESS: The patient is a 50-year-old female with history of morbid obesity status post Dominick-en-Y gastric bypass. The patient presents with acute onset of nausea, vomiting, and abdominal pain. She states the pain and vomiting started approximately 10:00 p.m. last night and continues to get worse. She was unable to tolerate anything by mouth and was having significant vomiting multiple times, multiple episodes. She came to emergency department for further evaluation and workup. She states her pain is somewhat mild but located diffusely and somewhat incisional. She denies any significant distension. She is passing gas. She has not had a bowel movement and denies any fevers or chills. PAST MEDICAL HISTORY: 1. Morbid obesity. 2. Arthritis. PAST SURGICAL HISTORY: 1. Appendectomy. 2. Cholecystectomy. 3. Hysterectomy. 4. Dominick-en-Y gastric bypass. SOCIAL HISTORY: Denies smoking, EtOH or IV drug abuse. ALLERGIES: 1. SULFA. 2. CEFACLOR. 3. CODEINE. 4. IBUPROFEN. 5. LEVOFLOXACIN. 6. PENICILLIN G. MEDICATIONS: See the electronic medical record. FAMILY HISTORY: Denies diabetes or hypertension. REVIEW OF SYSTEMS: GENERAL: Denies eye pain, ear pain. NECK: Denies swelling or pain. LUNGS: Denies cough or wheeze. HEART: Denies palpitations or chest pain. ABDOMEN: Complains of nausea, vomiting, abdominal pain. : Denies dysuria, hematuria. ENDOCRINE: Denies polyuria or polydipsia. PHYSICAL EXAMINATION: GENERAL: The patient is in no acute distress. VITAL SIGNS: Temperature 98.6, pulse 100, respirations 18, blood pressure 112/66, saturation 97% on room air. HEAD, EYES, EARS, NOSE, THROAT: Pupils equal round reactive. NECK: The neck is supple. Trachea midline. LUNGS: Clear to auscultation bilateral expansion. HEART: S1-S2 regular. ABDOMEN: Soft, mild tenderness to palpation. Incisions with Steri-Strips. Scant dried blood. EXTREMITIES: extremities were warm, well-perfused. NEUROLOGIC: GCS 15, 5/5 motor all extremities. INTEGUMENT: No obvious masses or lesions. LABORATORY AND DIAGNOSTIC DATA: WBC 14 cm, hemoglobin 13.7, hematocrit 40, platelets 305,000. Sodium 136, potassium 3.8, chloride of 98, BUN 15, creatinine 0.7, AST 25, ALT 35, alkaline phosphatase 151, albumin 3, lipase 151. CT reviewed by myself: Recent gastric bypass, mesenteric stranding, mild dilation Dominick limb, normal biliopancreatic limb, no free air or free fluid. ASSESSMENT: The patient is 51-year-old female status post Dominick-en-Y gastric bypass who recently developed nausea, vomiting, abdominal pain and concern for obstruction. PLAN: After full clinical, radiologic and laboratory workup, the patient with the above-named issues including nausea, vomiting, abdominal pain, concern for obstruction versus ileus versus edema. At this point, the patient needs undergo upper GI series to evaluate the patency of both the gastrojejunostomy and jejunojejunostomy. Further will keep the patient n.p.o., IV fluids, pain control. Will give nausea treatment as well and monitor the patient closely. Discussed with the patient regarding the situation. The patient understands and agrees. MD ISRAEL Holguin/PARAM /6:45 PM /6:59 PM
[2017-05-05] VITALS (7 sets, daily range): BP systolic 101–143; BP diastolic 55–75; PULSE 81–94; RESP 17–20; TEMP 97.2–97.7; O2SAT 95–99
[2017-05-05] MEDS: ACETAMINOPHEN 1000 MG/100 ML 100 ML IV SCH ×2 (03:08→08:26)
[2017-05-05] MEDS: D5-1/2 NS + KCL 20 MEQ INJ 1,000 ML IV SCH ×3 (03:09→21:41)
[2017-05-05] MEDS: METOCLOPRAMIDE HCL 10 MG/2 ML VIAL IV PUSH SCH ×2 (03:09→08:27)
[2017-05-05] MEDS: PANTOPRAZOLE SOD 40 MG DELAYED RELEASE TAB PO SCH (08:27)
[2017-05-05] MEDS: SODIUM CHLORIDE 0.9% FLUSH 10 ML FLUSH IV FLUSH SCH ×2 (08:27→21:00)
--- NOTE | 2017-05-05 08:46 | HHI.PR ---
Subjective Subjective Notes feeling much better today, tolerating po pills, still npo, +bm Objective Vitals/I&O Vital Signs Date Time Temp Pulse Resp B/P (MAP) Pulse Ox O2 Delivery O2 Flow Rate FiO2 05/05/17 04:00 97.2 84 17 101/57 (72) 96 05/05/17 04:00 Room Air 05/04/17 13:34 21 Labs Laboratory Tests Test 05/04/17 10:32 Urine Color YELLOW Urine Turbidity CLEAR Urine pH 6.5 Urine Specific [place] GREATER THAN 1.050 Urine Protein 30 Urine Glucose (UA) NEG Urine Ketones 150 Urine Occult Blood NEG Urine Nitrite NEG Urine Bilirubin NEG Urine Urobilinogen 2.0 Urine Leukocyte Esterase NEG Urine RBC 5 Urine WBC 2 Urine Squamous Epithelial Cells 8 Urine Bacteria OCC Urine Mucus FEW Microscopic Urinalysis Comment CULT NOT INDICATED Abdomen: Other (soft mild incisional tenderness) A/P Assessment and Plan Hx of rygb, vomiting and pain post op- improving, +bm PLAN oob pain control will start bariatric clear liq diet dvt ppx continue with nausea meds Porter Gaona MD May 05, 2017 08:46
[2017-05-05] MEDS: ENOXAPARIN SODIUM 40 MG/0.4 ML SYRINGE SQ SCH (10:50)
[2017-05-05 13:15] LABS: AUTOMATED NEUTROPHIL # 7.4 TH/MM3 (1.8-7.7); BASOPHIL % 0.5 % (0.0-2.0); EOSINOPHIL # 0.4 TH/MM3 (0-0.4); EOSINOPHIL % 4.6 % (0.0-4.0); HEMOGLOBIN 12.2 GM/DL (11.6-15.3); LYMPH % 13.2 % (9.0-44.0); LYMPHOCYTE # 1.3 TH/MM3 (1.0-4.8); MEAN CELL VOLUME 91.4 FL (80.0-100.0); MEAN CORPUSCULAR HEMOGLOBIN 31.9 PG (27.0-34.0); MEAN CORPUSCULAR HGB CONC 34.9 % (32.0-36.0); MEAN PLATELET VOLUME 8.6 FL (7.0-11.0); MONO % 4.9 % (0.0-8.0); MONOCYTE # 0.5 TH/MM3 (0-0.9); NEUT % 76.8 % (16.0-70.0); PLATELET COUNT 223 TH/MM3 (150-450); RED BLOOD COUNT 3.83 MIL/MM3 (4.00-5.30); RED CELL DISTRIBUTION WIDTH 13.7 % (11.6-17.2); WHITE BLOOD COUNT 9.6 TH/MM3 (4.0-11.0)
[2017-05-05] MEDS ORDERED: METOCLOPRAMIDE HCL 10 MG/2 ML VIAL IV PUSH PRN (13:30)
[2017-05-05 13:44] LABS: BICARBONATE 24.6 MEQ/L (21.0-32.0); CALCIUM 8.1 MG/DL (8.5-10.1); CREATININE 0.53 MG/DL (0.50-1.00)
[2017-05-06] VITALS (8 sets, daily range): BP systolic 117–167; BP diastolic 59–83; PULSE 74–102; RESP 18–20; TEMP 97.2–98.7; O2SAT 94–100
[2017-05-06] MEDS: D5-1/2 NS + KCL 20 MEQ INJ 1,000 ML IV SCH ×2 (05:03→13:17)
[2017-05-06] MEDS: SODIUM CHLORIDE 0.9% FLUSH 10 ML FLUSH IV FLUSH SCH (08:12)
[2017-05-06] MEDS: PANTOPRAZOLE SOD 40 MG DELAYED RELEASE TAB PO SCH (08:13)
--- NOTE | 2017-05-06 12:09 | HHI.PR ---
Subjective Subjective Notes Laying in bed Denies N/V Not passing flatus consistently Objective Vitals/I&O Vital Signs Date Time Temp Pulse Resp B/P (MAP) Pulse Ox O2 Delivery O2 Flow Rate FiO2 05/06/17 08:00 Room Air 05/06/17 08:00 98.3 102 20 128/81 (97) 98 05/05/17 20:42 21 Labs Laboratory Tests Test 05/05/17 12:52 White Blood Count 9.6 Red Blood Count 3.83 Hemoglobin 12.2 Hematocrit 35.0 Mean Corpuscular Volume 91.4 Mean Corpuscular Hemoglobin 31.9 Mean Corpuscular Hemoglobin Concent 34.9 Red Cell Distribution Width 13.7 Platelet Count 223 Mean Platelet Volume 8.6 Neutrophils (%) (Auto) 76.8 Lymphocytes (%) (Auto) 13.2 Monocytes (%) (Auto) 4.9 Eosinophils (%) (Auto) 4.6 Basophils (%) (Auto) 0.5 Neutrophils # (Auto) 7.4 Lymphocytes # (Auto) 1.3 Monocytes # (Auto) 0.5 Eosinophils # (Auto) 0.4 Basophils # (Auto) 0.0 CBC Comment DIFF FINAL Differential Comment Blood Urea Nitrogen 4 Creatinine 0.53 Random Glucose 113 Calcium Level 8.1 Magnesium Level 2.0 Sodium Level 138 Potassium Level 3.5 Chloride Level 107 Carbon Dioxide Level 24.6 Anion Gap 6 Estimat Glomerular Filtration Rate 121 Radiology Last Impressions Chest X-Ray 05/04/17510 Signed Impressions: Service Date/Time: Thursday, May 04, 2017 05:17 - CONCLUSION: No acute disease. No significant change has occurred. Farhat De La Torre MD Abdomen/Pelvis CT 05/04/17510 Signed Impressions: Service Date/Time: Thursday, May 04, 2017 07:27 - CONCLUSION: 1. Evidence of recent gastric bypass procedure. There is mild hazy opacity in the mesenteric fat and anterior abdominal wall this is nonspecific and may represent postsurgical change or inflammatory change. No organized fluid collections. No free air or free fluid. No evidence of bowel obstruction. 2. Mild hepatic steatosis. 3. Status post cholecystectomy. Jason Galvan MD Upper GI Series 05/04/17 0000 Signed Impressions: Service Date/Time: Thursday, May 04, 2017 17:41 - CONCLUSION: Recent gastric bypass changes with a nonspecific enteritis of the jejunal segment. GE junction and gastrojejunal anastomosis are patent. Contrast not observed in the more distal small bowel but there is no distention to suggest obstruction. A portable abdomen x-ray will be obtained in one hour. Findings were discussed with Dr. Gaona by phone. Hermilo Porter MD Abdomen X-Ray 05/04/17 0000 Signed Impressions: Service Date/Time: Thursday, May 04, 2017 18:38 - CONCLUSION: Nonobstructive pattern. Hermilo Porter MD Cardiovascular: Regular Lungs: Clear Abdomen: Other (mild tenderness to palpation LLQ and RLQ, intermittent bowel sounds) Extremities: Perfused A/P Assessment and Plan 51yo F with nausea and vomiting s/p recent RNY -Advance to full liquids -CT to evaluate dilated bowel, if remains dilated, OR in the morning -OOB and ambulate halls at least Rachid Zhou May 06, 2017 12:09
[2017-05-06] MEDS ORDERED: DIATRIZOATE MEGLUM/DIATRIZOATE SOD 9 ML CUP PO ONE (12:45)
[2017-05-06] MEDS: ENOXAPARIN SODIUM 40 MG/0.4 ML SYRINGE SQ SCH (13:23)
--- NOTE | 2017-05-06 16:27 | RADRPT ---
EXAM DATE/TIME: 05/06/2017 16:06 [facility] COMPARISON: CT ABDOMEN & PELVIS W CONTRAST, May 04, 2017, 7:27. GASTROGRAFIN GI SERIES, May 04, 2017, 17 :41. ABDOMEN KUB ONLY, May 04, 2017, 18:38. INDICATIONS : Intracable vomiting,after gastric bypass ORAL CONTRAST: Partial prescribed oral contrast ingested. RADIATION DOSE: 32.65 CTDIvol (mGy) MEDICAL HISTORY : Cardiovascular disease. Hypertension. Diabetes Acute kidney injury SURGICAL HISTORY : Appendectomy. Cholecystectomy.Gastric bypass. C-gastric bypass ENCOUNTER: Initial ACUITY: 1 day PAIN SCALE: 0/10 LOCATION: Abdomen TECHNIQUE: Volumetric scanning of the abdomen and pelvis was performed. Using automated exposure control and ad justment of the mA and/or kV according to patient size, radiation dose was kept as low as reasonably achievable to obtain optimal diagnostic quality images. DICOM format image data is available electro nically for review and comparison. FINDINGS: Appearance of the abdomen and pelvis is stable. Again noted is evidence of recent gastric bypass surg liz with mild haziness of the fat mesenteric and anterior abdominal wall secondary to surgery and jeramie und the initial gastrojejunostomy anastomosis and initial segment of the jejunum. Mild hepatic steato sis is appreciated with clips in place prior cholecystectomy. There is no evidence of free air, free fluid or mass. CONCLUSION: Stable CT scan of the abdomen and pelvis with recent gastric bypass surgery and postsurgical changes as described above stable relative to 04 May 2017 Tim Mejia MD on May 06, 2017 at 16:19 Board Certified Radiologist. This report was verified electronically.
[2017-05-07] MEDS: SODIUM CHLORIDE 0.9% FLUSH 10 ML FLUSH IV FLUSH SCH ×3 (00:17→21:00)
[2017-05-07] MEDS: D5-1/2 NS + KCL 20 MEQ INJ 1,000 ML IV SCH ×2 (00:17→08:41)
[2017-05-07 04:00] VITALS: BP 107/67; PULSE 70; RESP 18; TEMP 97.5; O2SAT 92
[2017-05-07 08:10] VITALS: BP 116/64; PULSE 72; RESP 19; TEMP 98.2; O2SAT 97
[2017-05-07] MEDS: PANTOPRAZOLE SOD 40 MG DELAYED RELEASE TAB PO SCH (08:41)
[2017-05-07] MEDS: ENOXAPARIN SODIUM 40 MG/0.4 ML SYRINGE SQ SCH (10:24)
[2017-05-07 12:10] VITALS: BP 131/60; PULSE 73; RESP 18; TEMP 98.1; O2SAT 100
--- NOTE | 2017-05-07 12:14 | HHI.PR ---
Subjective Subjective Notes Sitting up in chair, is able to tolerated full liquids. She is somewhat of a poor historian but does admit to some intermittent flatus Objective Vitals/I&O Vital Signs Date Time Temp Pulse Resp B/P (MAP) Pulse Ox O2 Delivery O2 Flow Rate FiO2 05/07/17 08:10 98.2 72 19 116/64 (81) 97 05/07/17 00:00 Room Air 05/05/17 20:42 21 Radiology Last Impressions Chest X-Ray 05/04/17 0511 Signed Impressions: Service Date/Time: Thursday, May 04, 2017 05:17 - CONCLUSION: No acute disease. No significant change has occurred. Farhat De La Torre MD Abdomen/Pelvis CT 05/04/17 05 Signed Impressions: Service Date/Time: Thursday, May 04, 2017 07:27 - CONCLUSION: 1. Evidence of recent gastric bypass procedure. There is mild hazy opacity in the mesenteric fat and anterior abdominal wall this is nonspecific and may represent postsurgical change or inflammatory change. No organized fluid collections. No free air or free fluid. No evidence of bowel obstruction. 2. Mild hepatic steatosis. 3. Status post cholecystectomy. Jason Galvan MD Upper GI Series 05/04/17 0000 Signed Impressions: Service Date/Time: Thursday, May 04, 2017 17:41 - CONCLUSION: Recent gastric bypass changes with a nonspecific enteritis of the jejunal segment. GE junction and gastrojejunal anastomosis are patent. Contrast not observed in the more distal small bowel but there is no distention to suggest obstruction. A portable abdomen x-ray will be obtained in one hour. Findings were discussed with Dr. Gaona by phone. Hermilo Porter MD Abdomen X-Ray 05/04/17 0000 Signed Impressions: Service Date/Time: Thursday, May 04, 2017 18:38 - CONCLUSION: Nonobstructive pattern. Hermilo Porter MD Last Impressions Abdomen/Pelvis CT 05/06/17 0000 Signed Impressions: Service Date/Time: Saturday, May 06, 2017 16:06 - CONCLUSION: Stable CT scan of the abdomen and pelvis with recent gastric bypass surgery and postsurgical changes as described above stable relative to 04 May 2017 Tim Mejia MD Chest X-Ray 05/04/17 0511 Signed Impressions: Service Date/Time: Thursday, May 04, 2017 05:17 - CONCLUSION: No acute disease. No significant change has occurred. Farhat De La Torre MD Upper GI Series 05/04/17 0000 Signed Impressions: Service Date/Time: Thursday, May 04, 2017 17:41 - CONCLUSION: Recent gastric bypass changes with a nonspecific enteritis of the jejunal segment. GE junction and gastrojejunal anastomosis are patent. Contrast not observed in the more distal small bowel but there is no distention to suggest obstruction. A portable abdomen x-ray will be obtained in one hour. Findings were discussed with Dr. Gaona by phone. Hermilo Porter MD Abdomen X-Ray 05/04/17 0000 Signed Impressions: Service Date/Time: Thursday, May 04, 2017 18:38 - CONCLUSION: Nonobstructive pattern. Hermilo Porter MD Abdomen: Other (soft, mild tenderness to palpation LLQ and RUQ, intermittent bowel sounds) Extremities: Perfused A/P Assessment and Plan 51yo F with nausea and vomiting s/p recent RNY -CT scan improved, no OR -Advance to puree -CBC in AM -Continue to increase fluids as tolerated -Continue with frequent ambulation Discharge Planning D/C home maybe tomorrow Rachid Del Rio May 07, 2017 12:14
[2017-05-07 16:10] VITALS: BP 133/84; PULSE 77; RESP 18; TEMP 98.4; O2SAT 100
[2017-05-07 20:00] VITALS: BP 150/70; PULSE 80; RESP 17; TEMP 97.8; O2SAT 100
[2017-05-08] VITALS: BP 135/64; PULSE 89; RESP 17; TEMP 98.3; O2SAT 95
[2017-05-08] MEDS: D5-1/2 NS + KCL 20 MEQ INJ 1,000 ML IV SCH ×2 (01:49→10:25)
[2017-05-08 04:00] VITALS: BP 124/63; PULSE 86; RESP 17; TEMP 98.1; O2SAT 97
[2017-05-08 08:10] VITALS: BP 134/84; PULSE 86; RESP 18; TEMP 98.3; O2SAT 96
[2017-05-08] MEDS: SODIUM CHLORIDE 0.9% FLUSH 10 ML FLUSH IV FLUSH SCH (08:33)
[2017-05-08] MEDS: PANTOPRAZOLE SOD 40 MG DELAYED RELEASE TAB PO SCH (08:33)
[2017-05-08] MEDS: ENOXAPARIN SODIUM 40 MG/0.4 ML SYRINGE SQ SCH (10:30)
[2017-05-08 12:00] LABS: HEMATOCRIT 33.2 % (35.0-46.0); HEMOGLOBIN 11.1 GM/DL (11.6-15.3); MEAN CELL VOLUME 90.4 FL (80.0-100.0); MEAN CORPUSCULAR HEMOGLOBIN 30.4 PG (27.0-34.0); MEAN CORPUSCULAR HGB CONC 33.6 % (32.0-36.0); MEAN PLATELET VOLUME 8.8 FL (7.0-11.0); PLATELET COUNT 244 TH/MM3 (150-450); RED BLOOD COUNT 3.67 MIL/MM3 (4.00-5.30); RED CELL DISTRIBUTION WIDTH 13.6 % (11.6-17.2); WHITE BLOOD COUNT 6.9 TH/MM3 (4.0-11.0)
[2017-05-08 12:15] VITALS: BP 121/73; PULSE 79; RESP 18; TEMP 98.1; O2SAT 97
--- NOTE | 2017-05-08 13:32 | HHI.DS ---
Discharge Summary Admission Date May 04, 2017 at 13:28 Discharge Date: May 08, 2017 Admitting Diagnosis Intractable vomiting Brief History 51yo female who had RNY on 05/01/17 presented with intractable nausea and vomiting. CBC/BMP: 05/08/17 1031 05/05/17 1252 Significant Findings Laboratory Tests Test 05/08/17 08:37 05/08/17 10:31 Red Blood Count 3.67 MIL/MM3 (4.00-5.30) Hemoglobin 11.1 GM/DL (11.6-15.3) Hematocrit 33.2 % (35.0-46.0) Imaging Last Impressions Abdomen/Pelvis CT 05/06/17 0000 Signed Impressions: Service Date/Time: Saturday, May 06, 2017 16:06 - CONCLUSION: Stable CT scan of the abdomen and pelvis with recent gastric bypass surgery and postsurgical changes as described above stable relative to 04 May 2017 Tim Mejia MD Chest X-Ray 05/04/17 0511 Signed Impressions: Service Date/Time: Thursday, May 04, 2017 05:17 - CONCLUSION: No acute disease. No significant change has occurred. Farhat De La Torre MD Upper GI Series 05/04/17 0000 Signed Impressions: Service Date/Time: Thursday, May 04, 2017 17:41 - CONCLUSION: Recent gastric bypass changes with a nonspecific enteritis of the jejunal segment. GE junction and gastrojejunal anastomosis are patent. Contrast not observed in the more distal small bowel but there is no distention to suggest obstruction. A portable abdomen x-ray will be obtained in one hour. Findings were discussed with Dr. Gaona by phone. Hermilo Porter MD Abdomen X-Ray 05/04/17 0000 Signed Impressions: Service Date/Time: Thursday, May 04, 2017 18:38 - CONCLUSION: Nonobstructive pattern. Hermilo Porter MD PE at Discharge CARDIOVASCULAR: Regular rate and rhythm without murmurs, gallops, or rubs. RESPIRATORY: Breath sounds equal bilaterally. No accessory muscle use. GASTROINTESTINAL: Abdomen soft with mild tenderness MUSCULOSKELETAL: No cyanosis, or edema. Hospital Course The patient was admitted for observation. There was questionable small bowel follow through on upper GI. CT revealed some distended bowel. The patient was kept NPO initially then slowly advanced to clear liquids, then full, then pureed. The patients pain decreased and she was able to tolerate each diet transition. She began to have bowel movements and the pain subsided. She was sent home in stable condition Pt Condition on Discharge: Stable Discharge Disposition: Discharge Home Discharge Instructions DIET: Follow Instructions for: Pureed (Wired Jaw) Additional Diet Instructions: No concentrated sweets, no potatoes, no grains, no breads, no pasta Activities you can perform: Shower Only-No Bath Activities to Avoid: Strenuous Activity Follow up Referrals: Surgical - 1 Week @ [facility] with Morgan Schwarz MD Continued Medications: Atenolol (Atenolol) 25 Mg Tab 25 MG PO DAILY for Blood Pressure Management, #30 TAB 0 Refills Fluoxetine (Prozac) 10 Mg Cap 10 MG PO DAILY, #30 CAP 0 Refills Levothyroxine (Levothyroxine) 137 Mcg Tab 137 MCG PO DAILY for Thyroid, #30 TAB 0 Refills Nortriptyline (Nortriptyline) 10 Mg Cap 10 MG PO HS for Depression Control, CAP 0 Refills Pantoprazole (Pantoprazole) 40 Mg Tab 40 MG PO BID for Reflux, #30 TAB 0 Refills Additional Information This patient was examined by myself and Dr. Schwarz and this note was written on his behalf Rachid Del Rio May 08, 2017 13:32
== END 2017-05-08 16:45 | disposition home or self-care (01) | DRG 392 ==
LOC: NEPC 03:52 → NEDA 10:26 → OBSVTOIN 13:28 → NEDA 16:30 → N04A 18:27
PROVIDERS: ADMIT Surgery; ATTEND Surgery
DX: R11.2 Nausea with vomiting, unspecified (principal); E66.01 Morbid (severe) obesity due to excess calories; F32.9 Major depressive disorder, single episode, unspecified; E03.9 Hypothyroidism, unspecified; E11.9 Type 2 diabetes mellitus without complications; K21.9 Gastro-esophageal reflux disease without esophagitis; R10.9 Unspecified abdominal pain; M19.90 Unspecified osteoarthritis, unspecified site; F41.9 Anxiety disorder, unspecified; Z88.0 Allergy status to penicillin; Z88.1 Allergy status to other antibiotic agents; Z88.2 Allergy status to sulfonamides; Z88.5 Allergy status to narcotic agent; Z88.6 Allergy status to analgesic agent; Z98.84 Bariatric surgery status
CPT/HCPCS: 71045; 74018; 74176; 74177; 74240; 80048; 80053; 81001; 83605; 83690; 83735; 85025; 85027; 87493; 93005; 94150; 96361; 96365; 96366; 96375; J0131; J0780; J1650; J2405; J2765; J3480; J7030; Q9963; Q9967